=== PATIENT | male | born 1950 | race Asian ===

== ENCOUNTER 2022-09-17 09:02 | Outpatient (CLI) | payer MEDICARE | END 2022-09-17 09:03 | disposition home or self-care (01) | LOC: CSHCT 09:02 | PROVIDERS: ATTEND Neurological Surgery | DX: S06.5X0A Traumatic subdural hemorrhage without loss of consciousness, initial encounter (principal) | CPT/HCPCS: 70450 ==

== ENCOUNTER 2023-01-07 08:01 | Outpatient (CLI) | payer BC | END 2023-01-07 08:02 | disposition home or self-care (01) | LOC: CSHCT 08:01 | PROVIDERS: ATTEND Neurological Surgery | DX: I62.03 Nontraumatic chronic subdural hemorrhage (principal); I69.398 Other sequelae of cerebral infarction; G93.89 Other specified disorders of brain | CPT/HCPCS: 70450 ==